=== PATIENT | female | born 2000 | race Caucasian/White ===

== ENCOUNTER 2022-11-20 17:12 | Emergency (ER) | payer BC ==
[2022-11-20 17:21] VITALS: BP 132/72
--- NOTE | 2022-11-20 17:23 | ED Physician Documentation ---
PD HPI URI - Stated complaint Stated Complaint: SORE THROAT,FEVER - Chief complaint Chief Complaint: Heent - History obtained from History obtained from: Patient - History of Present Illness Timing - onset: Yesterday Timing duration: Days (1) Timing details: Abrupt onset, Still present, Still present in ED Associated symptoms: Fever, Chills, Nasal congestion (minimal), Sore throat (severe). No: Rhinorrhea, Sinus pain, Dyspnea Contributing factors: Sick contact (her 2 friends dx with strep throat earlier in the week.) Similar symptoms before: Has not had sx before Recently seen: Not recently seen Review of Systems Constitutional: reports: Fever (since yesterday with Tmax of 104.), Chills, Myalgias Ears: denies: Ear pain Nose: reports: Congestion. denies: Rhinorrhea / runny nose Throat: reports: Sore throat Respiratory: denies: Dyspnea, Cough GI: denies: Vomiting, Diarrhea Skin: denies: Rash Neurologic: denies: Headache PD PAST MEDICAL HISTORY - Past Medical History Cardiovascular: None Respiratory: None Endocrine/Autoimmune: None - Present Medications Home Medications: Ambulatory Orders Medication Instructions Recorded Confirmed Amoxicillin 500 mg PO TID #21 cap 11/20/22 FLUoxetine [PROzac] 20 mg PO DAILY 11/20/22 11/20/22 HYDROcod/ACETAM 5/325 [[place] 5/325] 1 ea PO Q6H PRN #10 tablet 11/20/22 dexAMETHasone [Decadron] 4 mg PO DAILY #4 tablet 11/20/22 - Allergies Allergies/Adverse Reactions: Allergies Allergy/AdvReac Type Severity Reaction Status Date / Time No Known Drug Allergies Allergy Verified 11/20/22 17:18 PD ED PE NORMAL - Vitals Vital signs reviewed: Yes - General General: Alert and oriented X 3, Well developed/nourished - HEENT HEENT: No: Pharynx benign (marked redness and exudate of tonsils. ENlarged moderately. No peritonsillar edema. ) - Neck Neck: Supple, no meningeal sign, Other (antereior neck nodes that are tender. ) - Cardiac Cardiac: RRR, No murmur - Respiratory Respiratory: Clear bilaterally - Abdomen Abdomen: Soft, Non tender - Derm Derm: Normal color, Warm and dry Results - Vitals Vitals: Vital Signs - 24 hr 08/05/23 17:14 Temperature 36.7 C Heart Rate 99 Respiratory 20 Rate Blood Pressure 132/72 H O2 Saturation 97 Oxygen O2 Source Room air - Labs Labs: Laboratory Tests 11/20/22 17:23 Group A Strep Rapid POSITIVE H PD Medical Decision Making - ED course Complexity details: reviewed results (positive strep test. ), considered differential (very suspicous for strep tonsillitis. ), d/w patient Departure - Departure Disposition: 01 Home, Self Care Clinical Impression: Acute streptococcal tonsillitis Condition: Stable Instructions: ED Strep Pharyngitis Conf Prescriptions: Amoxicillin 500 mg PO TID #21 cap dexAMETHasone [Decadron] 4 mg PO DAILY #4 tablet HYDROcod/ACETAM 5/325 [[place] 5/325] 1 ea PO Q6H PRN #10 tablet PRN Reason: Pain Comments: Your rapid strep test is positive. This would correlate well with your clinical symptoms. Amoxicillin 3 times daily for the next week for the infection. Dexamethasone steroid for inflammation and will help reduce the pain daily for the next several days. Stay well-hydrated. Drink lots of fluids. You can use some Benadryl liquid 5 to 10 mL every 6 hours or so if needed. Can hold it in the back of the throat before swallowing and it has a bit of a numbing effect. Benzocaine can be used as well (Chloraseptic or Cepacol's/Septocaine). Tylenol or ibuprofen as needed for pains every 6 hours. Add hydrocodone if needed for pain in the short-term. However this should improve well once on antibiotics within a couple of days. I sent your prescriptions to [facility] pharmacy in [place] which is the only one open till 7:00 this evening. The others closed at 6. I sent your prescriptions up electronically there so they should be working on them. I am prescribing a short course of narcotic pain medication for you. These are potentially dangerous and addictive medications that should be used carefully. These medications may constipate you. Take an [id number] stool softener such as docusate twice daily with plenty of water while taking these medications. If you go 24 hours without a bowel movement, take [id number] MiraLAX, per package instructions. Do not drink or drive while taking these medications. If you received narcotic or sedating medications while in the emergency department do not drive for 24 hours. Store this medication in a safe, secure place and out of reach of children. It is a violation of federal law to give or sell this medication to another person or to use in a manner other than prescribed. The ED will not refill narcotic prescriptions, including prescriptions lost or stolen. You can dispose of unwanted medications at the [facility]'s office or at several pharmacies such as [facility]. Recheck if not improving well over the next few days and resolved by 3 to 5 days. Forms: PCP List Discharge Date/Time: 11/20/22 18:04
[2022-11-20 17:35] LABS: RAPID STREP SCREEN POSITIVE (Negative)
[2022-11-20] MEDS ORDERED: AMOXICILLIN 250 MG CAPSULE PO STA (17:37)
[2022-11-20] MEDS ORDERED: dexAMETHasone 4 MG TABLET PO STA (17:37)
[2022-11-20] MEDS ORDERED: LIDOCAINE VISCOUS 2% 15 ML ORAL SYRINGE MM STA (17:37)
[2022-11-20] MEDS ORDERED: diphenhydrAMINE ELIXIR 25 MG/10 ML UDC PO STA (17:38)
== END 2022-11-20 18:04 | disposition home or self-care (01) ==
LOC: ED 17:12
DX: J03.00 Acute streptococcal tonsillitis, unspecified (principal)
CPT/HCPCS: 87430; 99283; A9270; J8540